=== PATIENT | female | born 1940 | race Hispanic/Latino ===

== ENCOUNTER 2024-03-05 17:25 | Emergency (ER) | payer MEDICARE ==
[~2024-03-05] VITALS: Ht 157.5 cm; Wt 54.0 kg
[2024-03-05 17:29] VITALS: TEMP 98
[2024-03-05] MEDS ORDERED: AMLODIPINE BESYL5 MG PO (17:41)
[2024-03-05] MEDS ORDERED: LISINOPRIL5 MG PO (17:42)
[2024-03-05] MEDS ORDERED: METFORMIN HCL500 MG PO (17:43)
[2024-03-05] MEDS ORDERED: ARICEPT10 MG PO (17:43)
[2024-03-05 18:00] VITALS: PULSE 55; RESP 18
[2024-03-05 18:02] LABS: BASOPHILS # (AUTO) 0.1 (0.0-0.1); BASOPHILS % 0.9 % (0.0-1.0); EOSINOPHILS # (AUTO) 0.1 (0.0-0.4); EOSINOPHILS % 1.1 % (0.0-6.0); HEMATOCRIT 42.9 % (34.2-44.1); HEMOGLOBIN 13.5 g/dL (12.0-16.0); LYMPHOCYTES # (AUTO) 3.3 (1.0-3.2); LYMPHOCYTES % 40.3 % (18.0-39.1); MEAN CORPUSCULAR HEMOGLOBIN 31.3 pg (28-32); MEAN CORPUSCULAR HGB CONC 31.5 g/dL (31-35); MEAN CORPUSCULAR VOLUME 99.3 fL (81-99); MONOCYTES # (AUTO) 0.5 (0.2-0.8); MONOCYTES % 6.1 % (4.4-11.3); NEUTROPHILS # (AUTO) 4.2 (2.1-6.9); NEUTROPHILS % 51.4 % (38.7-80.0); PLATELET COUNT 92 x10e3/uL (140-360); RED BLOOD COUNT 4.32 x10e6/uL (3.6-5.1); RED CELL DISTRIBUTION WIDTH 13.7 % (11.7-14.4); WHITE BLOOD COUNT 8.23 x10e3/uL (4.8-10.8)
[2024-03-05 18:05] LABS: INR 1.01; PROTHROMBIN TIME 13.9 seconds (11.9-14.5)
[2024-03-05 18:06] LABS: PARTIAL THROMBOPLASTIN TIME 30.1 seconds (23.8-35.5)
[2024-03-05] MEDS: HYDRALAZINE HCL 20 MG/ML VIAL IV STA (18:10)
[2024-03-05 18:16] LABS: ANION GAP 16.5 mmol/L (8-16); BILIRUBIN,TOTAL 0.5 mg/dL (0.2-1.2); CALCIUM 10.6 mg/dL (8.4-10.2); CREATININE, SERUM 0.84 mg/dL (0.57-1.11); POTASSIUM 4.5 mmol/L (3.5-5.1); TOTAL PROTEIN 7.9 g/dL (6.5-8.1)
[2024-03-05 18:21] LABS: TROPONIN I 0.004 ng/mL (0-0.300)
[2024-03-05 18:30] VITALS: BP 151/58; PULSE 63; RESP 18; O2SAT 99
== END 2024-03-05 19:15 | disposition home or self-care (01) ==
LOC: ER 18:09
DX: I10 Essential (primary) hypertension (principal); E11.9 Type 2 diabetes mellitus without complications
CPT/HCPCS: 36415; 71045; 80053; 82550; 83735; 84484; 85025; 85610; 85730; 93005; 99284; J0360